=== PATIENT | male | born 1960 | race Caucasian/White ===

== ENCOUNTER 2024-06-10 15:48 | Emergency (ER) | payer SELFPAY ==
[2024-06-10 15:57] VITALS: BP 144/80; PULSE 82; RESP 20; TEMP 36.7; O2SAT 99
--- NOTE | 2024-06-10 16:05 | ED_ITS ---
HPI - Ear Problem General Chief complaint: Wound/Laceration Stated complaint: Right Ear Injury Time Seen by Provider: 06/10/24 16:05 Source: patient Mode of arrival: ambulatory Limitations: no limitations History of Present Illness HPI Narrative: 63 y/o male presented for c/o injury to right ear sustained 2 days ago. Pt slipped while walking down the carpet stairs, and struck the right hear on the wooden door jam. Pt was seen in the ER 2 days ago, updated tetanus, and has been applying an antibiotic ointment per PCP. Reports yellow drainage to the wound and wanted to be evaluated again. Denies swelling. Says bleeding stopped yesterday. Denies LOC at time of injury, and reports normal head CT from ER. MD Complaint: ear pain Related Data Allergies Allergy/AdvReac Type Severity Reaction Status Date / Time No Known Allergies Allergy Verified 06/10/24 16:15 Review of Systems Review of Systems: CONSTITUTIONAL: Denies malaise, chills, or fever. EYES: Denies visual changes, redness, or discharge. ENT: Denies rhinorrhea, congestion, sinus pain, and sore throat. Reports ear wound/pain CARDIOVASCULAR: Denies chest pain, palpitations, or edema. RESPIRATORY: Denies cough or dyspnea. GASTROINTESTINAL: Denies abdominal pain, nausea, vomiting, diarrhea MUSCULOSKELETAL: Denies myalgia. NEUROLOGIC: Denies headache. All systems reviewed & are unremarkable except as noted in HPI and below PMFSH Comments At time of signature, agree with nursing past medical, surgical, social and family history. There is no relevant family history pertinent to the presenting complaint Exam Narrative: GENERAL: Well-appearing EYES: PERRLA, conjunctivae clear ENT: Nares clear. Mucous membranes moist. Right upper ear with abrasion and linear abrasion approx 1cm, closed, no drainage. Lac to juction of oneyda and antihelix approx 1cm, scant bleeding. No swelling. CHEST: Clear to auscultation, breath sounds equal. No wheezing, rhonchi, rales, or stridor. No respiratory distress, speaks in full sentences. HEART: Regular rate and rhythm. No murmur heard. SKIN: Warm, dry NEURO: Alert and oriented x3. PSYCH: Normal mood and affect Course Course Emergency Course: Patient is aware of diagnosis, understands and agrees to treatment plan. Anticipatory guidance given. Patient agrees to follow-up as directed and is aware of reasons to seek care at the emergency department. Portions of this record may have been created with voice recognition software Level of Care: Express Care Visit Vital Signs Vital signs: Vital Signs Temperature 98.0 F 06/10/24 15:57 Pulse Rate 82 06/10/24 15:57 Respiratory Rate 20 06/10/24 15:57 Blood Pressure 144/80 H 06/10/24 15:57 Pulse Oximetry 99 06/10/24 15:57 Oxygen Delivery Room Air 06/10/24 15:57 Temperature 98.0 F 06/10/24 15:57 Pulse Rate 82 06/10/24 15:57 Respiratory Rate 20 06/10/24 15:57 Blood Pressure 144/80 H 06/10/24 15:57 Pulse Oximetry 99 06/10/24 15:57 Oxygen Delivery Room Air 06/10/24 15:57 Reviewed Procedures Laceration right ear: Site: other (junction of antihelix and oneyda) Size (cm): 1 Description: linear and clean Depth: simple, single layer Pre-repair: wound explored and irrigated (skintegrity) ====== Skin Level ====== Skin layer closed with: dermabond ====== Subcutaneous Layer ====== ====== Muscle Layer ====== ====== Tendon Layer ====== Medical Decision Making MDM Narrative Medical decision making narrative: discussed physical exam findings, glue applied to wound, ARIELLE and dressing applied to upper ear wound. Patient tolerated well. Prescription for cephalexin 5.Advised supportive measures and signs/symptoms to go to the ER. Patient is appropriate for outpatient treatment and follow-up. Differential Diagnosis Differential Diagnosis: Coronavirus, strep pharyngitis, allergic rhinitis, upper respiratory tract infection, sinusitis, rhinosinusitis, nasopharyngitis, viral pharyngitis, otitis media, otitis externa, eustachian tube dysfunction, foreign body, cerumen impaction. Vital Signs Vital Signs: Vital Signs Temperature 98.0 F 06/10/24 15:57 Pulse Rate 82 06/10/24 15:57 Respiratory Rate 20 06/10/24 15:57 Blood Pressure 144/80 H 06/10/24 15:57 Pulse Oximetry 99 06/10/24 15:57 Oxygen Delivery Room Air 06/10/24 15:57 Temperature 98.0 F 06/10/24 15:57 Pulse Rate 82 06/10/24 15:57 Respiratory Rate 20 06/10/24 15:57 Blood Pressure 144/80 H 06/10/24 15:57 Pulse Oximetry 99 06/10/24 15:57 Oxygen Delivery Room Air 06/10/24 15:57 Discharge Plan Discharge Clinical Impression: Abrasion of right ear Patient Disposition: Home, Self-Care Condition: Stable Instructions: Antibiotic Form, Ear Abrasion (ED) Additional Instructions: The glue film will fall off in 5 to 10 days Do not soak your wound. Avoid frequent or prolonged contact with water, including heavy perspiration. This may loosen the skin glue before the wound is healed. Keep the area clean and dry - cleanse with warm water and mild soap and allow to fully dry. Cover wound if draining Watch for worsening symptoms including pain, redness, swelling, streaking, pus/ drainage, fever. Go to the ER with any of these symptoms or concerns. Follow up with primary care provider in 1 week as needed. Patient Language: Cambodian Prescriptions: New cephalexin 500 mg capsule 500 mg PO Q8H 5 Days Qty: 15 0RF Follow-up/Referrals: Helder Pettit MD [Primary Care Provider] - Time of Disposition: 16:36
== END 2024-06-10 16:40 | disposition home or self-care (01) ==
PROVIDERS: Emergency Provider Nurse Practitioner Family; PCP Family Medicine Adolescent Medicine
DX: S00.411 Abrasion of right ear (principal); W22.09XD Striking against other stationary object, subsequent encounter
CPT/HCPCS: 12011; 99203; G0463